=== PATIENT | female | born 1965 | race Caucasian/White ===

== ENCOUNTER 2016-10-02 16:17 | Emergency (ER) | payer OTHER ==
[2016-10-02 16:34] VITALS: BP 115/62; PULSE 102; RESP 16; TEMP 98.3
--- NOTE | 2016-10-02 16:43 | ED ---
Lower Extremity Injury HPI - General Chief Complaint: Extremity Injury, Lower Stated Complaint: left ankle injury Time Seen by Provider: 10/02/16 16:28 Source: patient, RN notes reviewed Mode of arrival: wheelchair Limitations: no limitations - History of Present Illness Initial Comments: 51-year-old female presents to the emergency department with a chief complaint of left ankle pain. Patient states she was laying on the couch and she heard the doorbell so she popped up to answer the door and all of a sudden she had a terrible pain to the left ankle. Patient doesn't know if she inverted it or not. Patient states that the pain caused her to fall. Patient states she's now been unable to bear weight on the ankle and she shows some increased swelling. Patient states she is not using anything for the pain. Patient denies any history of problems with the ankle the past. Patient denies any other injury at this time.Patient denies any recent fever, chills, shortness of breath, chest pain, back pain, abdominal pain, nausea vomiting, numbness or tingling, dysuria or hematuria, constipation or diarrhea, headaches or visual changes, or any other current symptoms. - Related Data Previous Rx's Medication Instructions Recorded Ibuprofen [Motrin] 600 mg PO Q6HR PRN #20 tab 10/02/16 Allergies Allergy/AdvReac Type Severity Reaction Status Date / Time No Known Allergies Allergy Verified 10/02/16 16:34 Review of Systems ROS Statement: Those systems with pertinent positive or pertinent negative responses have been documented in the HPI. ROS Other: All systems not noted in ROS Statement are negative. Past Medical History Past Medical History: No Reported History History of Any Multi-Drug Resistant Organisms: None Reported Past Surgical History: Appendectomy Additional Past Surgical History / Comment(s): spinal tumor removal 2005 Past Psychological History: No Psychological Hx Reported Smoking Status: Current every day smoker Past Alcohol Use History: Occasional Past Drug Use History: None Reported General Exam - General Exam Comments Initial Comments: General: The patient is awake and alert, in no distress, and does not appear acutely ill. Neck: The neck is supple, there is no tenderness. Cardiovascular: There is a regular rate and rhythm. No murmur, rub or gallop is appreciated. Respiratory: Lungs are clear to auscultation, respirations are non-labored, breath sounds are equal. No wheezes, stridor, rales, or rhonchi. Musculoskeletal: Sensation intact with 2+ pulses throughout the left lower extremity. Patient has full range of motion of the left knee. Patient has swelling noted mostly over the lateral malleolus and anterior ankle. Full range motion of the toes with sensation intact and less than 2 capillary refill to the left foot. Neurological: CN II-XII intact, There are no obvious motor or sensory deficits. Coordination appears grossly intact. Speech is normal. Skin: Skin is warm and dry and no rashes or lesions are noted. Psychiatric: Normal mood and affect. Limitations: no limitations Course Vital Signs 10/02/16 16:29 Temperature 98.3 F Pulse Rate 102 H Respiratory 16 Rate Blood Pressure 115/62 O2 Sat by Pulse 96 Oximetry Medical Decision Making - Medical Decision Making 51-year-old female presents emergency Department with a chief complaint of left ankle pain. At this time we will undergo an x-ray of the patient's ankle. At this time x-ray was reviewed. At this time there is a possible avulsion versus ligament injury. Due to patient's swelling at this time we did place an Sonny wrap help bring down the swelling. Discussed all the dorsal for the need of a possible cast depending on how she does and initial evaluation by then. The patient is a plan. We will give her crutches we discussed using the medications prescribed we discussed return parameters and all patient's questions. She states she understood and agreed with plan. She will be discharged. - Radiology Data Radiology results: image reviewed Interpreted by me: Interpreted by me: Left ankle xray: 3 view, no fracture, no dislocation, there does appear to be a small lucency to the distal aspect of the lateral malleolus most significant most likely to be associated ligament injury. Possible avulsion. no foreign bodies, no soft tissue damage. Waiting official radiology read. Disposition Clinical Impression: Left ankle sprain Disposition: HOME SELF-CARE Condition: Stable Instructions: Ankle Sprain (ED) Additional Instructions: Please use medication as discussed. Please follow up with family doctor if symptoms have not improved over the next two days. Please return to the emergency room if your symptoms increase or worsen or for any other concerns. Prescriptions: Ibuprofen [Motrin] 600 mg PO Q6HR PRN #20 tab PRN Reason: Pain Referrals: None,Stated [Primary Care Provider] - 1-2 days Vikas Sumner DO [Doctor of Osteopathic Medicine] - 1-2 days Time of Disposition: 17:27
[2016-10-02] MEDS ORDERED: IBUPROFEN 600 MG TAB PO STA (17:38)
--- NOTE | 2016-10-02 18:13 | XR ---
Left ankle HISTORY: Trauma and pain 3 views of the left ankle No comparisons There is a chip fracture at the distal fibula. There is marked soft tissue swelling. Alignment is joanna ntained. No evident dislocation. IMPRESSION: Findings may represent an avulsion fracture and associated soft tissue swelling distal le ft fibula
== END 2016-10-02 17:43 | disposition home or self-care (01) ==
LOC: EC 16:17
DX: S93.402A Sprain of unspecified ligament of left ankle, initial encounter (principal); F17.200 Nicotine dependence, unspecified, uncomplicated; W08.XXXA Fall from other furniture, initial encounter; Y92.009 Unspecified place in unspecified non-institutional (private) residence as the place of occurrence of the external cause
CPT/HCPCS: 99283